=== PATIENT | female | born 1940 | race Two or more races ===

== ENCOUNTER 2023-06-21 14:50 | Emergency (ER) | payer OTHER, MEDICAID ==
[~2023-06-21] VITALS: Ht 157.5 cm; Wt 54.5 kg
[2023-06-21 15:54] LABS: Basophils # (auto) 0.1 10 ^3/uL (0-0.2); Basophils % (auto) 0.7 % (0.0-2.0); Eosinophils # (auto) 0.1 10 ^3/uL (0-0.8); Eosinophils % (auto) 0.5 % (0.0-7.0); Hematocrit 44.9 % (36.0-46.0); Lymphocytes # (auto) 1.2 10 ^3/uL (0.4-5.4); Mean Corpuscular Hemoglobin 31.1 pg (28.0-32.0); Mean Corpuscular Hgb Conc. 33.4 g/dL (32.0-36.0); Mean Corpuscular Volume 93.1 fL (80.0-100.0); Monocytes # (auto) 0.7 10 ^3/uL (0-1.3); Monocytes % (auto) 7.1 % (0.0-12.0); Neutrophils # (auto) 7.8 10 ^3/uL (1.6-8.6); Neutrophils % (auto) 79.7 % (37.0-80.0); Nucleated Red Blood Cells % 0.1 %; Red Blood Cells 4.82 10^6/uL (4.0-5.20); Red Cell Distribution Width 13.1 % (11.8-14.3); White Blood Cell 9.8 10^3/uL (4.4-10.8)
[2023-06-21 15:55] LABS: Chloride 105 mmol/L (98-107); Potassium 3.7 mmol/L (3.5-5.1); Sodium 137 mmol/L (136-145)
[2023-06-21 15:56] LABS: Anion Gap 6 (5-15); Carbon Dioxide 26 mmol/L (20-30)
[2023-06-21 15:57] LABS: Calcium 10.8 mg/dL (8.7-10.4)
[2023-06-21 16:02] LABS: BUN/Creatinine Ratio 12.7 (10.0-20.0); Blood Urea Nitrogen 13 mg/dL (9-23); Glucose 150 mg/dL (74-106)
[2023-06-21] MEDS ORDERED: DOCU-94 PO (16:20)
[2023-06-21 19:54] VITALS: BP 132/74; PULSE 78; RESP 20; TEMP 98.4; O2SAT 99
== END 2023-06-21 19:53 | disposition home or self-care (01) ==
LOC: ER 14:50 → EDBD 14:50 → ER 19:53
DX: K59.00 Constipation, unspecified (principal); I10 Essential (primary) hypertension; E78.5 Hyperlipidemia, unspecified; Z79.899 Other long term (current) drug therapy
CPT/HCPCS: 36415; 74018; 80048; 85025